=== PATIENT | male | born 1955 | race Caucasian/White ===

== ENCOUNTER → 2018-01-23 | Outpatient (CLI) | payer MEDICARE ==
--- NOTE | 2018-01-23 08:35 | RAD ---
Examination: KUB History: constipation Comparison/Correlation: None Findings: Frontal view of the abdomen was obtained. Bowel gas pattern is unremarkable. Nonspecific densities which may represent calcifications involving the left upper quadrant medially are present. Vascular calcifications are notable involving the iliac arteries. Bony structures are unremarkable for age. Moderate quantity of stool in the ascending colon. Impression: No obstruction. Moderate quantity of stool in the ascending colon. Electronically signed by: Beny Sena MD (01/23/2018 8:31 AM) [facility]
--- NOTE | 2018-01-23 08:40 | RAD ---
Indication:ELEV LIVER ENZYMES TECHNIQUE: Grayscale, color Doppler and spectral waveform is of the abdomen obtained. COMPARISON:None FINDINGS:The visualized pancreas is within normal limits. Pancreatic tail not visualized due to overlying bowel gas. IVC is within normal limits. No gallstones, pericholecystic fluid or gallbladder wall thickening. Liver measures 16 cm in longest dimension with diffusely increased echogenicity. Main portal vein is patent. Right kidney measures 12 cm in length without hydronephrosis. CBD measures 4 mm in diameter and is within normal limits. IMPRESSION: 1. No cholelithiasis or sonographic evidence of acute cholecystitis. 2. Hepatic steatosis. Electronically signed by: Rocky Ruiz DO (01/23/2018 8:37 AM) [id number]
== END | disposition home or self-care (01) ==
LOC: US 07:36
PROVIDERS: ATTEND Family Medicine
DX: K76.0 Fatty (change of) liver, not elsewhere classified (principal); R74.8 Abnormal levels of other serum enzymes; I65.22 Occlusion and stenosis of left carotid artery
CPT/HCPCS: 74018; 76705